=== PATIENT | male | born 1995 | race Caucasian/White ===

== ENCOUNTER 2016-08-23 18:15 | Emergency (ER) | payer OTHER ==
[2016-08-23 19:06] VITALS: BP 147/84; PULSE 76; RESP 18; TEMP 98.2
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
== END 2016-08-23 20:46 | disposition home or self-care (01) ==
LOC: EC 18:15
DX: S06.0X0A Concussion without loss of consciousness, initial encounter (principal); S09.8XXA Other specified injuries of head, initial encounter; Y04.2XXA Assault by strike against or bumped into by another person, initial encounter; F17.200 Nicotine dependence, unspecified, uncomplicated
CPT/HCPCS: 70450; 99283

== ENCOUNTER → 2020-03-01 | Outpatient (CLI) | payer OTHER ==
--- NOTE | 2020-03-01 16:39 | XR ---
EXAMINATION TYPE: XR ankle complete 3 views LT, XR foot complete 3 views LT DATE OF EXAM: 03/01/2020 COMPARISON: NONE HISTORY: 24-year-old male left ankle and foot pain after fall FINDINGS: Ankle: Ankle mortise is congruent with preservation of the distal tibiofibular overlap. Talar dome is intact . Small delineation to the Achilles tendon. Subtalar joint is aligned. Foot: No acute fracture, subluxation, or dislocation. Joint spaces throughout are maintained. IMPRESSION: Ankle and foot without acute osseous abnormality seen.
== END | disposition home or self-care (01) ==
LOC: RADXRMAIN 15:57
PROVIDERS: ATTEND Family Medicine
DX: M25.572 Pain in left ankle and joints of left foot (principal)

== ENCOUNTER → 2020-03-18 | Outpatient (CLI) | payer OTHER ==
--- NOTE | 2020-03-18 07:33 | US ---
EXAMINATION TYPE: US liver DATE OF EXAM: 03/18/2020 COMPARISON: NONE CLINICAL HISTORY: R94.5 Abnormal results of liver function studies. Patient stated has vitamin D defi ciency EXAM MEASUREMENTS: Liver Length: 20.2 cm Gallbladder Wall: 0.2 cm CBD: 0.3 cm Right Kidney: 10.9 x 7.7 x 4.7 cm Pancreas: Heterogeneous Liver: fatty liver as is hyperechoic to right renal cortex, vessels are not well seen, and liver is attenuated posteriorly Gallbladder: wnl Evidence for sonographic Marcial's sign: no CBD: wnl Right Kidney: No hydronephrosis or masses seen Visualized pancreas is heterogeneous without mass or ductal dilatation. Visualized liver echogenicity hyperechoic. Evaluation for focal masses suboptimal due to the marked heterogeneity. No shadowing mo bile gallstones. IMPRESSION: Heterogeneous hyperechoic appearance of liver likely on basis of diffuse fatty infiltrati on. Patient may benefit with elastography study.
== END | disposition home or self-care (01) ==
LOC: RADUSWWP 06:50
PROVIDERS: ATTEND Nurse Practitioner Family
DX: R74.8 Abnormal levels of other serum enzymes (principal)
CPT/HCPCS: 76705